=== PATIENT | female | born 1990 | race Caucasian/White ===

== ENCOUNTER 2017-11-19 03:13 | Inpatient (IN) | payer MEDICAID ==
[2017-11-19] MEDS: Lactated Ringers 1,000 ML IV SCH ×2 (03:30→05:53)
[2017-11-19] MEDS ORDERED: Sodium Chloride 0.9% 10 ML Syringe FLUSH PRN (03:32)
[2017-11-19] MEDS ORDERED: Oxytocin/Lactated Ringers 10 UNIT/1,000 ML BAG IV SCH (03:45)
[2017-11-19] MEDS ORDERED: Lidocaine 1% 50 ML MDV ONE (05:01)
--- NOTE | 2017-11-19 05:35 | PCM.LDHP ---
L&D History of Present Illness - General Date of Service: 11/19/17 Admit Problem/Dx: Patient Status Order with Admit Dx/Problem 11/19/17 03:32 Patient Status [ADT] Routine Admission Diagnosis/Problem Admission Diagnosis/Problem Source of Information: Patient History Limitations: Reports: No Limitations - History of Present Illness Introduction:: 27 year old female at 40w5d here in labor. Painful contractions started at 4pm on the 4th. Doing well. Declines pain medication. care with Dr. Farris without complications. Did mention after delivery that had a shoulder dystocia with her last delivery. 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: Hematologic History: Reports: Anemia Social & Family History - Family History Family Medical History: Noncontributory - Tobacco Use Smoking Status *Q: Never Smoker Second Hand Smoke Exposure: No - Caffeine Use Caffeine Use: Reports: None - Recreational Drug Use Recreational Drug Use: No H&P Review of Systems - Review of Systems: Review Of Systems: See Below General: Reports: No Symptoms HEENT: Reports: No Symptoms Pulmonary: Reports: No Symptoms Cardiovascular: Reports: No Symptoms Gastrointestinal: Reports: No Symptoms Genitourinary: Reports: No Symptoms Musculoskeletal: Reports: No Symptoms Skin: Reports: No Symptoms Psychiatric: Reports: No Symptoms Neurological: Reports: No Symptoms Hematologic/Lymphatic: Reports: No Symptoms Immunologic: Reports: No Symptoms L&D Exam - Exam Exam: See Below - Vital Signs Vital Signs: Last Vital Signs Temp 36.7 C 11/19/17 03:51 Pulse 96 11/19/17 03:51 Resp 22 H 11/19/17 03:51 BP 134/65 11/19/17 03:51 Pulse Ox Weight: 83.597 kg - OB Specific Contraction Intensity: Mild to Moderate Movement: Active Heart Tones: Present Heart Rate (FHR) Variability: Moderate (6-25 bmp) Presentation: Vertex - Welch Score Welch Score Cervix Position: Midposition Welch Score Consistency: Soft Welch Score Effacement: >80% Welch Score Dilation: > 5 cm Welch Score Infant's Station: -1 ,0 Welch Score Total: 11 - Exam General: Alert, Oriented HEENT: PERRLA, Conjunctiva Clear, EACs Clear, EOMI, Hearing Intact, Mucosa Moist & [place], Nares Patent, Normal Nasal Septum, Posterior Pharynx Clear, TMs Clear Neck: Supple, Trachea Midline Lungs: Clear to Auscultation, Normal Respiratory Effort Cardiovascular: Regular Rate, Regular Rhythm GI/Abdominal Exam: Normal Bowel Sounds, Soft, Non-Tender, No Organomegaly, No Distention, No Abnormal Bruit, No Mass, Pelvis Stable Genitourinary: Normal external exam, Normal bimanual exam, Normal speculum exam Back Exam: Normal Inspection, Full Range of Motion Extremities: Normal Inspection, Normal Range of Motion, Non-Tender, No Pedal Edema, Normal Capillary Refill Skin: Warm, Dry, Intact Neurological: Cranial Nerves Intact, Reflexes Equal Bilateral Psychiatric: Alert, Normal Affect, Normal Mood - Patient Data Lab Results Last 24 hrs: Laboratory Results - last 24 hr 11/19/17 Range/Units 03:40 WBC 12.65 H (3.98-10.04) K/mm3 RBC 4.30 (3.98-5.22) M/mm3 Hgb 12.5 (11.2-15.7) gm/L Hct 38.2 (34.1-44.9) % MCV 88.8 (79.4-94.8) fl MCH 29.1 (25.6-32.2) pg MCHC 32.7 (32.2-35.5) g/dl RDW Std Deviation 47.9 H (36.4-46.3) fL Plt Count 158 L (182-369) K/mm3 MPV 11.8 (9.4-12.3) fl Neut % (Auto) 71.5 H (34.0-71.1) % Lymph % (Auto) 19.0 L (19.3-51.7) % [place] % (Auto) 8.1 (4.7-12.5) % Eos % (Auto) 0.4 L (0.7-5.8) Baso % (Auto) 0.2 (0.1-1.2) % Neut # (Auto) 9.05 H (1.56-6.13) K/mm3 Lymph # (Auto) 2.40 (1.18-3.74) K/mm3 [place] # (Auto) 1.03 H (0.24-0.36) K/mm3 Eos # (Auto) 0.05 (0.04-0.36) K/mm3 Baso # (Auto) 0.02 (0.01-0.08) K/mm3 Result Diagrams: 11/19/17 03:40 Problem List Initiated/Reviewed/Updated: Yes Orders Last 24hrs: Active Orders 24 hr Category Date Time Status Patient Status [ADT] Routine ADT 11/19/17 03:32 Active Activity as Tolerated [RC] PFP Care 11/19/17 03:32 Active Communication Order [RC] ASDIRECTED Care 11/19/17 03:32 Active Notify Provider [RC] PFP Care 11/19/17 03:32 Active Notify Provider [RC] PRN Care 11/19/17 03:32 Active PCEA Epidural [RC] ASDIRECTED Care 11/19/17 03:33 Active Peripheral IV Care [RC] . DIRECTED Care 11/19/17 03:32 Active Vital Signs [RC] PER UNIT ROUTINE Care 11/19/17 03:32 Active RAPID PLASMA REAGIN,RPR [CHEM] Stat Lab 11/19/17 03:40 Received Lactated Ringers [Ringers, Lactated] 1,000 ml Med 11/19/17 03:45 Active IV ASDIRECTED Oxytocin/Lactated Ringers [Pitocin in LR 10 Units/1,000 Med 11/19/17 03:45 Active ML] 10 unit in 1,000 ml IV ASDIRECTED Sodium Chloride 0.9% [Saline Flush] Med 11/19/17 03:32 Active 10 ml FLUSH ASDIRECTED PRN Electronic Heart Tones Ext w TOCO [WOMSER] Oth 11/19/17 03:32 Ordered Routine Electronic Heart Tones Internal [WOMSER] Per Unit Oth 11/19/17 03:32 Ordered Routine Peripheral IV Insertion Adult [OM.PC] Routine Oth 11/19/17 03:32 Ordered Resuscitation Status Routine Resus Stat 11/19/17 03:32 Ordered Medication Orders Lactated Ringer's (Ringers, Lactated) 1,000 mls @ 100 mls/hr IV ASDIRECTED ODALIS Oxytocin/Lactated Ringer's (Pitocin In Lr 10 Units/1,000 Ml) 10 unit in 1,000 mls @ 500 mls/hr IV ASDIRECTED ODALIS Sodium Chloride (Saline Flush) 10 ml FLUSH ASDIRECTED PRN PRN Reason: Keep Vein Open Assessment/Plan Comment:: 27 year old female in active labor. AROM clear fluid. - with 1 minute shoulder dystocia.
--- NOTE | 2017-11-19 05:40 | PCM.SN ---
- Free Text/Narrative Note: Stage I - patient presented and was 5 cm. Progressed rapidly to 7 cm. AROM clear fluid. Progressed to complete on hands and knees. Stage II - In hands and knees head delivered over intact perineum. Shoulders did not follow immediately. Attempt to deliver in the position but not able. Assisted patient to hands and knees and legs brought back to [facility]. Shoulders delivered without difficulty then. Body followed atraumatically. Baby to maternal abdomen. Cord clamped and cut. Stage III of intact placenta. 3VC. 2nd degree laceration repaired with 3-0 vicryl. EBL 400.
[2017-11-19] MEDS ORDERED: Docusate Sodium 100 MG Cap PO PRN (05:55)
[2017-11-19] MEDS ORDERED: Witch Hazel Medicated Pads 100/Jar TOP PRN (06:07)
[2017-11-19] MEDS ORDERED: Benzocaine/Menthol 20%-0.5% Spray 56 GM Canister TOP PRN (06:07)
[2017-11-19] MEDS ORDERED: Lidocaine 1% 50 ML MDV INJECT ONE (06:12)
[2017-11-19] MEDS: Ibuprofen 600 MG Tab PO PRN ×3 (06:18→21:17)
[2017-11-20 07:49] VITALS: BP 109/71
== END 2017-11-20 09:30 | disposition home or self-care (01) | DRG 775 ==
LOC: JD.OBCHECK 03:13 → JD.OB 03:13 → JD.OBCHECK 03:31 → JD.OB 03:32 → OBSVTOIN 05:02 → JD.OB 05:03
PROVIDERS: ADMIT Obstetrics & Gynecology; ATTEND Obstetrics & Gynecology
PROC: 10E0XZZ Delivery of Products of Conception, External Approach (ICD-10-PCS; principal; 2017-11-19)
PROC: 0KQM0ZZ Repair Perineum Muscle, Open Approach (ICD-10-PCS; 2017-11-19)
PROC: 10907ZC Drainage of Amniotic Fluid, Therapeutic from Products of Conception, Via Natural or Artificial Opening (ICD-10-PCS; 2017-11-19)
DX: O48.0 Post-term pregnancy (principal); Z3A.40 40 weeks gestation of pregnancy; O66.0 Obstructed labor due to shoulder dystocia; O70.1 Second degree perineal laceration during delivery; Z37.0 Single live birth
CPT/HCPCS: 36415; 59300; 59409; 85025; 86592; A9270-GY; J2590; J7120

== ENCOUNTER 2020-07-10 16:05 | Inpatient (IN) | payer MEDICAID ==
[~2020-07-10 16:05] MED LIST: Bupivacaine 0.25% 10 ML SDV ONE
[2020-07-10] MEDS ORDERED: Sodium Chloride 0.9% 10 ML Syringe FLUSH PRN (16:28)
[2020-07-10] MEDS ORDERED: Nalbuphine 10 MG/1 ML Vial IVPUSH PRN (16:28)
[2020-07-10] MEDS ORDERED: Oxytocin/Lactated Ringers 10 UNIT/1,000 ML BAG IV SCH (16:30)
[2020-07-10] MEDS: Lactated Ringers 1,000 ML IV SCH ×3 (16:30→20:30)
[2020-07-10] MEDS ORDERED: ePHEDrine 50 MG/ML SDV IVPUSH PRN (17:18)
[2020-07-10] MEDS ORDERED: diphenhydrAMINE 50 MG/ML SDV IVPUSH PRN (17:18)
[2020-07-10] MEDS ORDERED: Bupivacaine/fentaNYL/NS 100 ML Bag EPIDUR PRN (17:18)
--- NOTE | 2020-07-10 17:19 | PCM.LDHP ---
L&D History of Present Illness - General Date of Service: 07/10/20 Admit Problem/Dx: Admission Diagnosis/Problem Admission Diagnosis/Problem Source of Information: Patient History Limitations: Reports: No Limitations - History of Present Illness Introduction:: Rianna Maradiaga is a 29-year-old -0-0-3 at 40 weeks 4 days (NASREEN 07/06/2020) by an 18-week ultrasound who presents with active labor. She reports that she started having contractions that started at around 4 AM and have continued throughout the day. They were fairly close together this morning at around 5 minutes apart and were becoming more painful. They have persisted throughout the day. She denies any leaking of fluid or vaginal bleeding. She reports that she has been having good movement. Timing/Duration: Reports: constant/continuous (Contractions throughout the day) Location, : Reports: Lower back, Pelvic Quality: Reports: Pressure, Throbbing Severity: Moderate Associated Symptoms: Denies: vaginal bleeding, vaginal discharge, vaginal fluid Present Illness Comments:: Rianna Maradiaga is a 29-year-old -0-0-3 female at 40 weeks 4 days (NASREEN 07/06/2020) by an 18-week ultrasound who presents with active labor. She has had regular care throughout her with Dr. Farris and Marcia Clark starting at 18 weeks gestational age. She has not had any complications during the . She declined the Tdap and flu vaccine during . This has been overall uncomplicated. 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 G1: 02/06/2015, 39 weeks gestational age, , female infant, 8 pounds 11 o unces, no complications G2: 06/29/2016, 40 weeks gestational age, , female , 8 pounds 1 ounce, no complications G3: 11/19/2017, 41 weeks gestational age, , female infant, 8 pounds 9 ounces, no complications G4: Current labs Blood type: O+ Antibody screen: Negative First trimester hematocrit/hemoglobin: 35.2%/11.4 on 02/09/2020 Platelets: 191 on 02/09/2020 Urine culture: Mixed jimmy suggestive of contamination Rubella status: Immune Hepatitis B surface antigen: Negative RPR: Negative HIV: Negative Gonorrhea: Negative Chlamydia: Negative Anatomy ultrasound: Normal anatomy, normal placental location, 75th percentile on 03/12/2020 One hour glucose tolerance test: 119 Second trimester hematocrit/hemoglobin: 34.8%/11.2 on 04/19/2020 Platelets: 161 on 04/19/2020 GBS status: Negative - Related Data Allergies/Adverse Reactions: Allergies Allergy/AdvReac Type Severity Reaction Status Date / Time No Known Allergies Allergy Verified 11/19/17 04:38 Home Medications: Home Meds Vit 90/Iron Fum/Folic [ Formula] 1 tab PO DAILY 06/28/16 [History] Past Medical History - Past Health History Medical/Surgical History: Denies 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/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: : 4 Para: 3 Hematologic History: Reports: Anemia Social & Family History - Family History Family Medical History: No Pertinent Family History - Tobacco Use Tobacco Use Status *Q: Never Tobacco User - Tobacco Core Measures Tobacco Use/Smoking Within Last 30 Days: No Smokeless Tobacco Use in Last 30 Days: No - Caffeine Use Caffeine Use: Reports: None - Alcohol Use Alcohol Use History: No - Recreational Drug Use Recreational Drug Use: No Drug Use in Last 12 Months: No - Living Situation & Occupation Living situation: Reports: , with Spouse, with Family H&P Review of Systems - Review of Systems: Review Of Systems: See Below General: Denies: Fever, Chills, Malaise, Weakness, Fatigue HEENT: Denies: Headaches, Rhinitis, Post Nasal Drip, Sinus Congestion, Sore Throat, Visual Changes Pulmonary: Denies: Shortness of Breath, Wheezing, Pleuritic Chest Pain, Cough Cardiovascular: Denies: Chest Pain, Palpitations, Dyspnea on Exertion, Orthopnea Gastrointestinal: Denies: Abdominal Pain, Constipation, Diarrhea, Nausea, Vomiting Genitourinary: Denies: Dysuria, Frequency, Burning, Pain, Urgency Musculoskeletal: Reports: Back Pain (and hip pain of ) Skin: Denies: Rash, Lesions Psychiatric: Denies: Depression, Anxiety Neurological: Denies: Dizziness L&D Exam - Exam Exam: See Below - OB Specific Contraction Duration (sec): 45-60 Contraction Frequency (min): 2-5 Contraction Intensity: Strong Movement: Active Heart Tones: Present Heart Tones per Min: 145 (+15 x 15 accelerations, no decelerations) Heart Rate (FHR) Variability: Moderate (6-25 bmp) Presentation: Vertex Estimated Weight: 8.5-9 lbs by [place] - Welch Score Welch Score Cervix Position: Anterior Welch Score Consistency: Soft Welch Score Effacement: >80% (90%) Welch Score Dilation: > 5 cm (7 cm) Welch Score Infant's Station: -2 Welch Score Total: 11 - Exam General: Alert, Oriented HEENT: Conjunctiva Clear, EOMI Neck: Supple, Trachea Midline Lungs: Clear to Auscultation, Normal Respiratory Effort Cardiovascular: Regular Rate, Regular Rhythm GI/Abdominal Exam: Soft, Non-Tender, No Distention, Other (Gravid). No: Guarding, Rigid, Rebound Genitourinary: Normal external exam Extremities: Normal Inspection, Non-Tender, No Pedal Edema Skin: Warm, Dry, Intact Psychiatric: Alert, Normal Affect, Normal Mood - Patient Data Result Diagrams: 07/10/20 16:35 - Problem List (1) 40 weeks gestation of SNOMED Code(s): 63805075 ICD Code: Z3A.40 - 40 WEEKS GESTATION OF Status: Acute Current Visit: No Problem List Initiated/Reviewed/Updated: Yes Orders Last 24hrs: Active Orders 24 hr Category Date Time Status Activity as Tolerated [RC] PFP Care 07/10/20 16:28 Active Communication Order [RC] ASDIRECTED Care 07/10/20 16:28 Active Heart Tones [RC] ASDIRECTED Care 07/10/20 16:28 Active Non Stress Test [RC] PER UNIT ROUTINE Care 07/10/20 16:28 Active Notify Provider [RC] PFP Care 07/10/20 16:28 Active Notify Provider [RC] PRN Care 07/10/20 16:28 Active Peripheral IV Care [RC] . DIRECTED Care 07/10/20 16:28 Active Vital Signs [RC] PER UNIT ROUTINE Care 07/10/20 16:28 Active Regular Diet [DIET] Diet 07/10/20 Dinner Active CBC WITH AUTO DIFF [HEME] Stat Lab 07/10/20 16:35 Received CORONAVIRUS COVID-19 [place] [MOLEC] Stat Lab 07/10/20 16:35 Received RAPID PLASMA REAGIN,RPR [CHEM] Routine Lab 07/10/20 16:35 Received Lactated Ringers [Ringers, Lactated] 1,000 ml Med 07/10/20 16:30 Active IV ASDIRECTED Nalbuphine [Nubain] Med 07/10/20 16:28 Active 10 mg IVPUSH Q2H PRN Oxytocin/Lactated Ringers [Pitocin in LR 10 Units/1,000 Med 07/10/20 16:30 Active ML] 10 unit in 1,000 ml IV .CONTINUOUS Sodium Chloride 0.9% [Saline Flush] Med 07/10/20 16:28 Active 10 ml FLUSH ASDIRECTED PRN Electronic Heart Tones Ext w TOCO [WOMSER] Oth 07/10/20 16:28 Ordered Routine Electronic Heart Tones Internal [WOMSER] Per Unit Ot 07/10/20 16:28 Ordered Routine Peripheral IV Insertion Adult [OM.PC] Routine Ot 07/10/20 16:28 Ordered Resuscitation Status Routine Resus Stat 07/10/20 16:28 Ordered Medication Orders Oxytocin/Lactated Ringer's (Pitocin In Lr 10 Units/1,000 Ml) 10 unit in 1,000 mls @ 500 mls/hr IV .CONTINUOUS ODALIS Lactated Ringer's (Ringers, Lactated) 1,000 mls @ 100 mls/hr IV ASDIRECTED ODALIS Nalbuphine HCl (Nubain) 10 mg IVPUSH Q2H PRN PRN Reason: Pain Sodium Chloride (Saline Flush) 10 ml FLUSH ASDIRECTED PRN PRN Reason: Keep Vein Open Assessment/Plan Comment:: Rianna Maradiaga is a 29-year-old -0-0-3 female at 40 weeks 4 days who presents in active labor Artificial rupture of membranes performed with cervical exam with return of large amount of meconium stained fluid. Mother and tolerated procedure without difficulty. Refer to observation for spontaneous labor with advanced cervical dilation of 7 cm Artificial rupture membranes performed with return of meconium stained fluid. We will inform on-call oncology admin of meconium fluid status. Continuous monitoring Place IV and have Lactated Ringer's at 125 ml/hr May have small amounts of regular diet Activity as tolerated Patient with epidural in place and working well Plans to breast-feed after delivery Anticipate vaginal delivery unless otherwise indicated Kayode Tolbert MD 6:31 PM 07/10/2020
[2020-07-10] MEDS: fentaNYL 100 MCG/2 ML SDV EPIDUR PRN ×2 (17:43→20:38)
--- NOTE | 2020-07-10 18:13 | PCM.PREANE ---
Preanesthetic Assessment - Procedure Proposed Procedure: Labor Epidural - Anesthesia/Transfusion/Family Hx Anesthesia History: No Prior Anesthesia Family History of Anesthesia Reaction: No Transfusion History: No Prior Transfusion(s) - Review of Systems General: No Symptoms Pulmonary: No Symptoms Cardiovascular: No Symptoms Gastrointestinal: No Symptoms Neurological: No Symptoms Other: Reports: None - Physical Assessment ASA Class: 2 Mental Status: Alert & Oriented x3 Airway Class: Mallampati = 2 Dentition: Reports: Normal Dentition Thyro-Mental Finger Breadths: 3 Mouth Opening Finger Breadths: 3 ROM/Head Extension: Full Lungs: Clear to Auscultation, Normal Respiratory Effort Cardiovascular: Regular Rate, Regular Rhythm - Lab Values: Laboratory Last Values WBC 13.48 K/mm3 (3.98-10.04) H 07/10/20 16:35 RBC 4.23 M/mm3 (3.98-5.22) 07/10/20 16:35 Hgb 12.4 gm/dl (11.2-15.7) 07/10/20 16:35 Hct 38.6 % (34.1-44.9) 07/10/20 16:35 MCV 91.3 fl (79.4-94.8) 07/10/20 16:35 MCH 29.3 pg (25.6-32.2) 07/10/20 16:35 MCHC 32.1 g/dl (32.2-35.5) L 07/10/20 16:35 RDW Std Deviation 47.2 fL (36.4-46.3) H 07/10/20 16:35 Plt Count 140 K/mm3 (182-369) L 07/10/20 16:35 MPV 10.7 fl (9.4-12.3) 07/10/20 16:35 Neut % (Auto) 82.8 % (34.0-71.1) H 07/10/20 16:35 Lymph % (Auto) 9.5 % (19.3-51.7) L 07/10/20 16:35 [place] % (Auto) 6.5 % (4.7-12.5) 07/10/20 16:35 Eos % (Auto) 0.1 (0.7-5.8) L 07/10/20 16:35 Baso % (Auto) 0.1 % (0.1-1.2) 07/10/20 16:35 Neut # (Auto) 11.15 K/mm3 (1.56-6.13) H 07/10/20 16:35 Lymph # (Auto) 1.28 K/mm3 (1.18-3.74) 07/10/20 16:35 [place] # (Auto) 0.88 K/mm3 (0.24-0.36) H 07/10/20 16:35 Eos # (Auto) 0.02 K/mm3 (0.04-0.36) L 07/10/20 16:35 Baso # (Auto) 0.01 K/mm3 (0.01-0.08) 07/10/20 16:35 Manual Slide Review Abnormal smear 07/10/20 16:35 SARS-CoV-2 RNA ([place]ITA) Negative (NEGATIVE) 07/10/20 16:35 - Allergies Allergies/Adverse Reactions: Allergies Allergy/AdvReac Type Severity Reaction Status Date / Time No Known Allergies Allergy Verified 11/19/17 04:38 - Acknowledgements Anesthesia Type Planned: Epidural Pt an Appropriate Candidate for the Planned Anesthesia: Yes Alternatives and Risks of Anesthesia Discussed w Pt/Guardian: Yes Pt/Guardian Understands and Agrees with Anesthesia Plan: Yes PreAnesthesia Questionnaire - Past Health History Medical/Surgical History: Denies 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: Hematologic History: Reports: Anemia - SUBSTANCE USE Tobacco Use Status *Q: Never Tobacco User Recreational Drug Use History: No - HOME MEDS Home Medications: Home Meds Vit 90/Iron Fum/Folic [ Formula] 1 tab PO DAILY 06/28/16 [History] - CURRENT (IN HOUSE) MEDS Current Meds: Current Medications Diphenhydramine HCl (Benadryl) 25 mg IVPUSH Q6H PRN PRN Reason: pruritis Ephedrine Sulfate (Ephedrine Sulfate) 5 mg IVPUSH ASDIRECTED PRN PRN Reason: Hypotension Fentanyl (Sublimaze) 100 mcg EPIDUR Q3H PRN PRN Reason: Pain Last Admin: 07/10/20 17:43 Dose: 100 mcg Documented by: Fentanyl/Bupivacaine HCl (Fentanyl/Bupivacaine/Ns 2 Mcg-0.125% 100 Ml) 100 ml EPIDUR ASDIRECTED PRN PRN Reason: Pain Last Admin: 07/10/20 17:43 Dose: 100 ml Documented by: Oxytocin/Lactated Ringer's (Pitocin In Lr 10 Units/1,000 Ml) 10 unit in 1,000 mls @ 500 mls/hr IV .CONTINUOUS ODALIS Lactated Ringer's (Ringers, Lactated) 1,000 mls @ 100 mls/hr IV ASDIRECTED ODALIS Last Admin: 07/10/20 17:44 Dose: 100 mls/hr Documented by: Nalbuphine HCl (Nubain) 10 mg IVPUSH Q2H PRN PRN Reason: Pain Sodium Chloride (Saline Flush) 10 ml FLUSH ASDIRECTED PRN PRN Reason: Keep Vein Open
--- NOTE | 2020-07-10 23:56 | PCM.DEL ---
L & D Note - General Info Date of Service: 07/10/20 Mother's Due Date: 07/06/20 - Delivery Note Labor: Spontaneous, Augmented by ARM Infant Delivery Method: Spontaneous Vaginal Delivery-Single Presentation: Left Occiput Anterior (RADHA) Nuchal Cord: None Prep: Povidone-Iodine (Betadine Anesthesia Type: Epidural Amniotic Fluid Description: Meconium Stained Episiotomy Type: None Laceration: 1st Degree (midline perineal, repaired with 3-0 Vicryl) Suture type: Vicryl Suture size: 3-0 Placenta: Intact, Spontaneous Cord: 3 Vessels Estimated Blood Loss: 350 Resuscitation Needed: Yes [place]: Suctioned, Bulb Syringe, Stimulated, Warmed, Drew Used, Warmer Used Provider: aKyode Tolbert Score 1 min: 8 Score 5 min: 9 Second Stage Interventions: Reports: Pushing, Stirrups/Leg Supports Delivery Comments (Free Text/Narrative):: Stage I: Rianna Maradiaga was admitted for active labor. On admission her cervix was dilated to 6 to 7 cm. She was GBS negative. She was given an epidural for anesthesia. She had artificial rupture of membranes with return of meconium stained fluid. She made slow progress to complete and pushing. Stage II: On 07/10/2020 she had a normal vaginal delivery of a live female infant at 23:07. Apgars of 8 & 9. Weight of 3890 g (8 lbs 9.2 oz). Length of 20.0 inches. There was no nuchal cord. was delivered in RADHA position. The cord was doubly clamped and cut by father the infant. Infant was placed on mother's abdomen initially and then taken to the warmer for further resuscitation. Stage III: She had a spontaneous delivery of an intact placenta in Basil presentation. Three vessel cord. She was given pitocin and fundal massage. She had a first-degree midline perineal laceration that was repaired with 3-0 Vicryl. After repair of the laceration there was notation of bilateral paravaginal epidermal inclusion cysts that were evacuated of the contents through the opening that was noted. Approximately 3 cc was obtained from the left side and 2 cc from the right side. The epidermal inclusion sac was not removed. Mom and baby were stable to recovery. EBL of 350 mL. Kayode Tolbert MD 11:51 PM 07/10/2020 - General Info Date of Service: 07/10/20 - Patient Data Vitals - Most Recent: Last Vital Signs Temp 36.7 C 07/10/20 16:28 Pulse 72 07/10/20 16:28 Resp 18 07/10/20 16:28 BP 121/66 07/10/20 16:28 Pulse Ox 98 07/10/20 16:28 Weight - Most Recent: 85.729 kg Lab Results Last 24 Hours: Laboratory Results - last 24 hr 07/10/20 07/10/20 07/10/20 Range/Units 16:35 16:35 16:35 WBC 13.48 H (3.98-10.04) K/mm3 RBC 4.23 (3.98-5.22) M/mm3 Hgb 12.4 (11.2-15.7) gm/dl Hct 38.6 (34.1-44.9) % MCV 91.3 (79.4-94.8) fl MCH 29.3 (25.6-32.2) pg MCHC 32.1 L (32.2-35.5) g/dl RDW Std Deviation 47.2 H (36.4-46.3) fL Plt Count 140 L (182-369) K/mm3 MPV 10.7 (9.4-12.3) fl Neut % (Auto) 82.8 H (34.0-71.1) % Lymph % (Auto) 9.5 L (19.3-51.7) % [place] % (Auto) 6.5 (4.7-12.5) % Eos % (Auto) 0.1 L (0.7-5.8) Baso % (Auto) 0.1 (0.1-1.2) % Neut # (Auto) 11.15 H (1.56-6.13) K/mm3 Lymph # (Auto) 1.28 (1.18-3.74) K/mm3 [place] # (Auto) 0.88 H (0.24-0.36) K/mm3 Eos # (Auto) 0.02 L (0.04-0.36) K/mm3 Baso # (Auto) 0.01 (0.01-0.08) K/mm3 Manual Slide Review Abnormal smear RPR Non-reactive (NONREACTIVE) SARS-CoV-2 RNA (CONCHITA) Negative (NEGATIVE) Med Orders - Current: Current Medications Diphenhydramine HCl (Benadryl) 25 mg IVPUSH Q6H PRN PRN Reason: pruritis Ephedrine Sulfate (Ephedrine Sulfate) 5 mg IVPUSH ASDIRECTED PRN PRN Reason: Hypotension Fentanyl (Sublimaze) 100 mcg EPIDUR Q3H PRN PRN Reason: Pain Last Admin: 07/10/20 20:38 Dose: 100 mcg Documented by: Fentanyl/Bupivacaine HCl (Fentanyl/Bupivacaine/Ns 2 Mcg-0.125% 100 Ml) 100 ml EPIDUR ASDIRECTED PRN PRN Reason: Pain Last Admin: 07/10/20 17:43 Dose: 100 ml Documented by: Oxytocin/Lactated Ringer's (Pitocin In Lr 10 Units/1,000 Ml) 10 unit in 1,000 mls @ 500 mls/hr IV .CONTINUOUS ODALIS Last Admin: 07/10/20 23:07 Dose: 500 mls/hr Documented by: Lactated Ringer's (Ringers, Lactated) 1,000 mls @ 100 mls/hr IV ASDIRECTED ODALIS Last Admin: 07/10/20 20:30 Dose: 100 mls/hr Documented by: Nalbuphine HCl (Nubain) 10 mg IVPUSH Q2H PRN PRN Reason: Pain Sodium Chloride (Saline Flush) 10 ml FLUSH ASDIRECTED PRN PRN Reason: Keep Vein Open - Problem List & Annotations (1) 40 weeks gestation of SNOMED Code(s): 43422748 Code(s): Z3A.40 - 40 WEEKS GESTATION OF Status: Acute Current Visit: No (2) Vaginal delivery SNOMED Code(s): 797680325 Code(s): O80 - ENCOUNTER FOR FULL-TERM UNCOMPLICATED DELIVERY Status: Acute Current Visit: Yes (3) First degree perineal laceration during delivery SNOMED Code(s): 712545934 Code(s): O70.0 - FIRST DEGREE PERINEAL LACERATION DURING DELIVERY Status: Acute Current Visit: Yes (4) Meconium in amniotic fluid SNOMED Code(s): 770217063 Code(s): P96.83 - MECONIUM STAINING Status: Acute Current Visit: Yes - Problem List Review Problem List Initiated/Reviewed/Updated: Yes - My Orders Last 24 Hours: My Active Orders 07/10/20 16:28 Activity as Tolerated [RC] PFP Communication Order [RC] ASDIRECTED Heart Tones [RC] ASDIRECTED Notify Provider [RC] PFP Notify Provider [RC] PRN Peripheral IV Care [RC] . DIRECTED Vital Signs [RC] PER UNIT ROUTINE Nalbuphine [Nubain] 10 mg IVPUSH Q2H PRN Sodium Chloride 0.9% [Saline Flush] 10 ml FLUSH ASDIRECTED PRN Electronic Heart Tones Ext w TOCO [WOMSER] Routine Electronic Heart Tones Internal [WOMSER] Per Unit Routine Peripheral IV Insertion Adult [OM.PC] Routine Resuscitation Status Routine 07/10/20 16:30 Lactated Ringers [Ringers, Lactated] 1,000 ml IV ASDIRECTED Oxytocin/Lactated Ringers [Pitocin in LR 10 Units/1,000 ML] 10 unit in 1,000 ml IV .CONTINUOUS 07/10/20 Dinner Regular Diet [DIET] 07/10/20 23:40 Patient Status Manage Transfer [TRANSFER] Routine - Plan Plan:: Rianna Maradiaga is a 29-year-old now -0-0-4 female status post , PPD #0 complicated by meconium fluid Admit to inpatient following normal spontaneous vaginal delivery Continue Pitocin per unit protocol following delivery of placenta and lactated Ringer's until tolerating regular diet Regular diet Vitals per unit routine Ibuprofen and Tylenol for pain control Assist with breast-feeding as needed Continue to monitor lochia Anticipate discharge home on day #2 secondary to late timing of delivery Kayode Tolbert MD 11:51 PM 07/10/2020
[2020-07-11] MEDS ORDERED: Oxytocin/Lactated Ringers 10 UNIT/1,000 ML BAG IV SCH (00:34)
[2020-07-11] MEDS ORDERED: Docusate Sodium 100 MG Cap PO PRN (00:34)
[2020-07-11] MEDS ORDERED: Witch Hazel Medicated Pads 40/Jar TOP PRN (00:34)
[2020-07-11] MEDS ORDERED: Benzocaine/Menthol 20%-0.5% Spray 56 GM Canister TOP PRN (00:34)
[2020-07-11] MEDS ORDERED: Magnesium Hydroxide 400 MG/5 ML Susp 30 ML Cup PO PRN (00:34)
[2020-07-11] MEDS ORDERED: Acetaminophen 325 MG Tab PO PRN (00:34)
[2020-07-11] MEDS ORDERED: Hydrocortisone Acetate 25 MG Supp RECTAL PRN (00:34)
--- NOTE | 2020-07-11 07:45 | PCM48HPAN ---
Post Anesthesia Note - EVALUATION WITHIN 48HRS OF ANESTHETIC Vital Signs in Normal Range: Yes Patient Participated in Evaluation: Yes Respiratory Function Stable: Yes Airway Patent: Yes Cardiovascular Function Stable: Yes Hydration Status Stable: Yes Pain Control Satisfactory: Yes Nausea and Vomiting Control Satisfactory: Yes Mental Status Recovered: Yes Vital Signs: Last Vital Signs Temp 98.1 F 07/11/20 02:42 Pulse 67 07/11/20 02:42 Resp 14 07/11/20 02:42 BP 117/67 07/11/20 02:42 Pulse Ox 96 07/11/20 02:42 - COMMENTS/OBSERVATIONS Free Text/Narrative:: Patient states she has a little numbness top of right thigh. Explained it could be from positioning during or epidural, but should gradually disappear.
[2020-07-11] MEDS: Prenatal Multivitamin with Calcium/Folic Acid/Iron Tab PO SCH (08:15)
[2020-07-11] MEDS: Ibuprofen 600 MG Tab PO PRN ×3 (08:15→21:00)
--- NOTE | 2020-07-11 09:15 | PCM.SN.2 ---
- Free Text/Narrative Note: note: Patient is doing well in the period. Minimal lochia, voiding well, ambulated without problems. Nursing without concerns. Patient is afebrile, vital signs are stable Abdomen is flat, soft, uterus is below the umbilicus and is firm and nontender. Legs are nontender. Assessment: recovery going well. Plan: Routine care. Patient be discharged home within the next 24- 48 hours.
--- NOTE | 2020-07-12 07:06 | PCM.DCSUM1 ---
Discharge Summary - Hospital Course Diagnosis: Stroke: No - Discharge Data Discharge Date: 07/12/20 Discharge Disposition: Home, Self-Care 01 Condition: Good - Referral to Home Health Primary Care Physician: PCP None - Patient Summary/Data Hospital Course: Stage I: Rianna Maradiaga was admitted for active labor. On admission her cervix was dilated to 6 to 7 cm. She was GBS negative. She was given an epidural for anesthesia. She had artificial rupture of membranes with return of meconium stained fluid. She made slow progress to complete and pushing. Stage II: On 07/10/2020 she had a normal vaginal delivery of a live female at 23:07. Apgars of 8 & 9. Weight of 3890 g (8 lbs 9.2 oz). Length of 20.0 inches. There was no nuchal cord. Infant was delivered in RADHA position. The cord was doubly clamped and cut by father the infant. Infant was placed on mother's abdomen initially and then taken to the warmer for further resuscitation. Stage III: She had a spontaneous delivery of an intact placenta in Basil presentation. Three vessel cord. She was given pitocin and fundal massage. She had a first-degree midline perineal laceration that was repaired with 3-0 Vicryl. After repair of the laceration there was notation of bilateral paravaginal epidermal inclusion cysts that were evacuated of the contents through the opening that was noted. Approximately 3 cc was obtained from the left side and 2 cc from the right side. The epidermal inclusion sac was not removed. Mom and baby were stable to recovery. EBL of 350 mL. - Patient Instructions Diet: Usual Diet as Tolerated Activity: No Strenuous Activities Driving: May Drive Today Showering/Bathing: May Shower Notify Provider of: Fever, Increased Pain, Swelling and Redness, Drainage, Nausea and/or Vomiting - Discharge Plan *PRESCRIPTION DRUG MONITORING PROGRAM REVIEWED*: No *COPY OF PRESCRIPTION DRUG MONITORING REPORT IN PATIENT ALANIS: No Home Medications: Home Meds Vit 90/Iron Fum/Folic [ Formula] 1 tab PO DAILY 06/28/16 [History] Referrals: Tai Farris MD [Physician] - (2 weeks) - Discharge Summary/Plan Comment DC Time >30 min.: No - General Info Date of Service: 07/12/20 Functional Status: Reports: Pain Controlled - Review of Systems General: Reports: No Symptoms HEENT: Reports: No Symptoms Pulmonary: Reports: No Symptoms Cardiovascular: Reports: No Symptoms Gastrointestinal: Reports: No Symptoms Genitourinary: Reports: No Symptoms Musculoskeletal: Reports: No Symptoms Skin: Reports: No Symptoms Neurological: Reports: No Symptoms Psychiatric: Reports: No Symptoms - Patient Data Vitals - Most Recent: Last Vital Signs Temp 36.6 C 07/11/20 21:03 Pulse 73 07/11/20 21:03 Resp 14 07/11/20 21:03 BP 112/76 07/11/20 21:03 Pulse Ox 94 L 07/11/20 21:03 Weight - Most Recent: 85.729 kg I&O - Last 24 hours: Intake & Output 07/11/20 07/12/20 07/12/20 22:59 06:59 14:59 Intake Total 610 Balance 610 Med Orders - Current: Current Medications Acetaminophen (Tylenol) 650 mg PO Q6H PRN PRN Reason: mild pain or fever Last Admin: 07/11/20 12:06 Dose: 650 mg Documented by: Benzocaine/Menthol (Dermoplast Pain Relief [place]) 0 gm TOP ASDIRECTED PRN PRN Reason: Perineal Comfort Measure Docusate Sodium (Colace) 100 mg PO BID PRN PRN Reason: Constipation Hydrocortisone Acetate (Anucort-Hc) 25 mg RECTAL BID PRN PRN Reason: Hemorrhoid pain Oxytocin/Lactated Ringer's (Pitocin In Lr 10 Units/1,000 Ml) 10 unit in 1,000 mls @ 100 mls/hr IV TITRATE ODALIS; Protocol Ibuprofen (Motrin) 600 mg PO Q6H PRN PRN Reason: Mild pain or fever Last Admin: 07/11/20 21:00 Dose: 600 mg Documented by: Magnesium Hydroxide (Milk Of Magnesia) 30 ml PO BEDTIME PRN PRN Reason: Constipation Prenat Multivit/[place]/Iron/Folic Ac ( Plus Iron) 1 each PO DAILY ODALIS Last Admin: 07/11/20 08:15 Dose: 1 each Documented by: Argenis Dickson) 1 pad TOP ASDIRECTED PRN PRN Reason: Perineal Comfort Measure Discontinued Medications Bupivacaine HCl (Sensorcaine-Mpf 0.25%) 10 ml .ROUTE .STK-MED ONE Stop: 07/10/20 14:01 Diphenhydramine HCl (Benadryl) 25 mg IVPUSH Q6H PRN PRN Reason: pruritis Ephedrine Sulfate (Ephedrine Sulfate) 5 mg IVPUSH ASDIRECTED PRN PRN Reason: Hypotension Fentanyl (Sublimaze) 100 mcg EPIDUR Q3H PRN PRN Reason: Pain Last Admin: 07/10/20 20:38 Dose: 100 mcg Documented by: Fentanyl/Bupivacaine HCl (Fentanyl/Bupivacaine/Ns 2 Mcg-0.125% 100 Ml) 100 ml EPIDUR ASDIRECTED PRN PRN Reason: Pain Last Admin: 07/10/20 17:43 Dose: 100 ml Documented by: Oxytocin/Lactated Ringer's (Pitocin In Lr 10 Units/1,000 Ml) 10 unit in 1,000 mls @ 500 mls/hr IV .CONTINUOUS ODALIS Last Admin: 07/10/20 23:07 Dose: 500 mls/hr Documented by: Lactated Ringer's (Ringers, Lactated) 1,000 mls @ 100 mls/hr IV ASDIRECTED ODALIS Last Admin: 07/10/20 20:30 Dose: 100 mls/hr Documented by: Nalbuphine HCl (Nubain) 10 mg IVPUSH Q2H PRN PRN Reason: Pain Sodium Chloride (Saline Flush) 10 ml FLUSH ASDIRECTED PRN PRN Reason: Keep Vein Open - Exam General: Reports: Alert, Oriented HEENT: Reports: Pupils Equal, Pupils Reactive, EOMI, Mucous Membr. Moist/[place] Neck: Reports: Supple Lungs: Reports: Clear to Auscultation, Normal Respiratory Effort Cardiovascular: Reports: Regular Rate, Regular Rhythm GI/Abdominal Exam: Normal Bowel Sounds, Soft, Non-Tender, No Organomegaly, No Distention, No Abnormal Bruit, No Mass, Pelvis Stable Rectal (Female) Exam: Normal Exam, Normal Rectal Tone Back Exam: Reports: Normal Inspection, Full Range of Motion Extremities: Normal Inspection, Normal Range of Motion, Non-Tender, No Pedal Edema, Normal Capillary Refill Skin: Reports: Warm, Dry, Intact Wound/Incisions: Reports: Healing Well Neurological: Reports: No New Focal Deficit Psy/Mental Status: Reports: Alert, Normal Affect, Normal Mood
[2020-07-12] MEDS: Ibuprofen 600 MG Tab PO PRN (07:48)
[2020-07-12] MEDS: Prenatal Multivitamin with Calcium/Folic Acid/Iron Tab PO SCH (08:36)
[2020-07-12 09:04] VITALS: BP 109/79; PULSE 64
== END 2020-07-12 10:25 | disposition home or self-care (01) | DRG 807 ==
LOC: JD.OB 16:05 → OBSVTOIN 23:07 → JD.OB 23:07
PROVIDERS: ADMIT Obstetrics & Gynecology; ATTEND Obstetrics & Gynecology
PROC: 10E0XZZ Delivery of Products of Conception, External Approach (ICD-10-PCS; principal; 2020-07-10)
PROC: 10907ZC Drainage of Amniotic Fluid, Therapeutic from Products of Conception, Via Natural or Artificial Opening (ICD-10-PCS; 2020-07-10)
PROC: 0HQ9XZZ Repair Perineum Skin, External Approach (ICD-10-PCS; 2020-07-10)
PROC: 3E0R3BZ Introduction of Anesthetic Agent into Spinal Canal, Percutaneous Approach (ICD-10-PCS; 2020-07-10)
PROC: 00HU33Z Insertion of Infusion Device into Spinal Canal, Percutaneous Approach (ICD-10-PCS; 2020-07-10)
DX: O77.0 Labor and delivery complicated by meconium in amniotic fluid (principal); Z37.0 Single live birth; O70.0 First degree perineal laceration during delivery; Z20.822 Contact with and (suspected) exposure to COVID-19; O99.892 Other specified diseases and conditions complicating childbirth; Z3A.40 40 weeks gestation of pregnancy; N89.8 Other specified noninflammatory disorders of vagina
CPT/HCPCS: 01967; 36415; 51702; 59025; 59409; 85025; 86592; A9270-GY; J2590; J3010; J3490; J7120; U0002